=== PATIENT | female | born 1945 | race Caucasian/White ===

== ENCOUNTER 2018-01-28 10:21 | Emergency (ER) | payer MEDICARE, OTHER ==
[~2018-01-28] VITALS: Ht 170.2 cm; Wt 112.0 kg
[~2018-01-28 10:21] MED LIST: ALLO100 PO; AMLO5 PO; AMOX500 PO; ARANESP; ASPERCREME1 EACH TOP; ASPI325 PO; ASPI325EC PO; ASPI81CH PO; ASPI81EC PO; ATOR20 PO; Arthritis Pai42.5 GM TOP; BIOTIN2500 MCG PO; BUME1 PO; BUME2 PO; Bystolic10 MG PO; CALCAVITD PO; CALCAVITDA PO; CALCIT950 PO; CHOL10002 PO; CITA20 PO; CLON.5 PO; CLON1 PO; CLOP75 PO; CYAN1000 PO; DARB200I SUBQ; EPOE20I SUBQ; ERGO400 PO; ESTR2 PO; ESTRTP PV; Enablex15 MG PO; FERR325 PO; FISH1000 PO; FLUSAL2505 IH; FLUT.05NI; FLUT110OIA IH; FLUT44OIA; FLUT44OIA IH; FURO20 PO; FURO40 PO; GABA100 PO; GABA600 PO; GELNIQUE; GELNIQUE30 GM TD; GLIM4 PO; HYDACE5 PO; HYDMOR4 PO; HYDR-86; INSDET100 SC; INSDET100 SQ; INSDET100 SUBQ; INSUASPI SC; INSUASPI SUBQ; IRON150C; IRON150C PO; ISOMON30 PO; ISOMON60ER PO; Isosorbide Mono60 MG PO; LAVAP17G PO; LEVEMIR; LEVSOD100 PO; LEVSOD137 PO; LIDO700A20 TOP; LOSA25 PO; LOSA50 PO; MECL12.5 PO; METO10 PO; METPRE4DP PO; Macrobid 100 M100 MG PO; NEBI10 PO; NITR.4SL SL; NITR.6SL SL; Norco 5-325 Ta1 EACH PO; Novolog Fl100 UNIT/1 INJ; OMEP20ER PO; OMEP40CA12 PO; OXYC1TAB11 PO; Oxycodone-Apap1 EAC3 PO; PANT40 PO; PIOG30 PO; POTA10T PO; Percocet 5-3251 EACH PO; RAMI5 PO; RANO500T PO; RISE30 PO; RXERYTOPTH OP; SENN187 PO; SIMV40 PO; TOLT4 PO; TOUJEO SOL300 UNIT/1 SQ; TRAZ50 PO; Valium5 MG PO; Ventolin Soln3 ML INH; Zofran8 MG PO
[2018-01-28] MEDS ORDERED: Oxycodone HCl5 M1 PO (11:49)
== END 2018-01-28 12:09 | disposition home or self-care (01) ==
LOC: ER 10:21
DX: S82.61XA Displaced fracture of lateral malleolus of right fibula, initial encounter for closed fracture (principal); I12.9 Hypertensive chronic kidney disease with stage 1 through stage 4 chronic kidney disease, or unspecified chronic kidney disease; E11.22 Type 2 diabetes mellitus with diabetic chronic kidney disease; N18.4 Chronic kidney disease, stage 4 (severe); D63.1 Anemia in chronic kidney disease; J44.9 Chronic obstructive pulmonary disease, unspecified; Z88.1 Allergy status to other antibiotic agents; Z88.2 Allergy status to sulfonamides; Z88.8 Allergy status to other drugs, medicaments and biological substances; Z88.6 Allergy status to analgesic agent; Z79.899 Other long term (current) drug therapy; Z79.01 Long term (current) use of anticoagulants; Z79.4 Long term (current) use of insulin; W19.XXXA Unspecified fall, initial encounter
CPT/HCPCS: 29505; 73610; 99283-25

== ENCOUNTER 2018-01-30 14:27 | Observation (INO) | payer MEDICARE, OTHER ==
[~2018-01-30] VITALS: Ht 170.2 cm; Wt 112.0 kg
[~2018-01-30 14:27] MED LIST changes: +Oxycodone HCl5 M1 PO
[2018-01-31 04:38] LABS: Hematocrit 31.2 % (33.0-51.0); Hemoglobin 10.3 g/dL (11.5-16.0); Mean Corpuscular HGB 31.2 pg (26.0-34.0); Mean Corpuscular Volume 95 fL (80-100); Mean Platelet Volume 9.4 fL (9.1-12.4); Platelet Count 180 K/mm3 (150-400); RDW Coefficient Variation 14.6 % (11.7-14.2); RDW Standard Deviation 49.8 fL (35.1-46.3); White Blood Cell Count 5.15 K/mm3 (4.00-11.30)
[2018-01-31 04:56] LABS: Bun/Creatinine Ratio 9.4 (12.0-20.0); Calcium, Blood 8.2 mg/dL (8.5-10.1); Creatinine, Blood 1.06 mg/dL (0.40-1.00); Potassium, Blood 3.4 mmol/L (3.5-5.5)
[2018-02-03 04:21] LABS: BASOPHILS ABSOLUTE AUTO 0.04 K/mm3 (0.00-0.23); BASOPHILS PERCENT AUTO 1 % (0-2); EOSINOPHILS ABSOLUTE AUTO 0.19 K/mm3 (0.00-0.68); EOSINOPHILS PERCENT AUTO 3 % (0-6); Hematocrit 29.3 % (33.0-51.0); Hemoglobin 9.7 g/dL (11.5-16.0); IMMATURE GRAN ABSOLUTE AUTO 0.03 K/mm3 (0.00-0.10); IMMATURE GRAN PERCENT AUTO 1 % (0-1); LYMPHOCYTES ABSOLUTE AUTO 1.78 K/mm3 (0.84-5.20); LYMPHOCYTES PERCENT AUTO 28 % (21-46); MONOCYTES ABSOLUTE AUTO 0.45 K/mm3 (0.16-1.47); MONOCYTES PERCENT AUTO 7 % (4-13); Mean Corpuscular HGB 31.5 pg (26.0-34.0); Mean Corpuscular HGB Conc 33.1 g/dL (31.5-36.5); Mean Corpuscular Volume 95 fL (80-100); Mean Platelet Volume 9.4 fL (9.1-12.4); NEUTROPHILS ABSOLUTE AUTO 3.97 K/mm3 (1.96-9.15); NEUTROPHILS PERCENT AUTO 61 % (41-73); Platelet Count 199 K/mm3 (150-400); RDW Coefficient Variation 15.2 % (11.7-14.2); RDW Standard Deviation 52.6 fL (35.1-46.3); Red Blood Cell Count 3.08 M/mm3 (3.80-5.20); White Blood Cell Count 6.46 K/mm3 (4.00-11.30)
[2018-02-03 04:45] LABS: Magnesium, Blood 1.5 mg/dL (1.6-2.4)
[2018-02-03 04:47] LABS: Albumin, Blood 2.6 g/dL (3.4-5.0); Albumin/Globulin Ratio 0.9 (0.8-1.8); Bilirubin, Total 0.5 mg/dL (0.1-1.0); Bun/Creatinine Ratio 17.1 (12.0-20.0); Calcium, Blood 8.1 mg/dL (8.5-10.1); Creatinine, Blood 1.64 mg/dL (0.40-1.00); Total Protein, Blood 5.6 g/dL (6.4-8.2)
[2018-02-03 04:55] LABS: Percent Saturation 34.5 % (15.0-50.0)
[2018-02-03] MEDS ORDERED: CLON1 PO (13:45)
[2018-02-03] MEDS ORDERED: Percocet 5-3251 EACH PO (13:50)
== END 2018-02-03 16:30 | disposition home or self-care (01) ==
LOC: ER 14:27 → SURS 14:28
PROVIDERS: Internal Medicine; Nurse Practitioner Acute Care
DX: S82.61XA Displaced fracture of lateral malleolus of right fibula, initial encounter for closed fracture (principal); J44.9 Chronic obstructive pulmonary disease, unspecified; I25.10 Atherosclerotic heart disease of native coronary artery without angina pectoris; E11.22 Type 2 diabetes mellitus with diabetic chronic kidney disease; I12.9 Hypertensive chronic kidney disease with stage 1 through stage 4 chronic kidney disease, or unspecified chronic kidney disease; N18.9 Chronic kidney disease, unspecified; E87.6 Hypokalemia; E11.42 Type 2 diabetes mellitus with diabetic polyneuropathy; E11.51 Type 2 diabetes mellitus with diabetic peripheral angiopathy without gangrene; G47.33 Obstructive sleep apnea (adult) (pediatric); Z88.1 Allergy status to other antibiotic agents; Z88.2 Allergy status to sulfonamides; Z88.8 Allergy status to other drugs, medicaments and biological substances; Z79.899 Other long term (current) drug therapy; Z95.828 Presence of other vascular implants and grafts; W18.30XA Fall on same level, unspecified, initial encounter
CPT/HCPCS: 36415; 73562-RT; 73610; 80048; 80053; 82728; 82947; 83540; 83550; 83735; 85025; 85027; 94640; 94760; 94762; 97110; 97161; 97165; 97530; 97535; 99284-25; G8978; G8979; G8987; G8988; J1644; J3010

== ENCOUNTER → 2018-12-01 | Outpatient (CLI) | payer MEDICARE, OTHER | END | disposition home or self-care (01) | LOC: PLD 10:06 → LAB SHORT 10:06 | DX: C44.41 Basal cell carcinoma of skin of scalp and neck (principal) | CPT/HCPCS: 88305 ==

== ENCOUNTER 2019-05-28 08:05 | Emergency (ER) | payer MEDICARE, OTHER ==
[~2019-05-28] VITALS: Ht 167.6 cm; Wt 114.8 kg
== END 2019-05-28 10:11 | disposition home or self-care (01) ==
LOC: ER 08:05
DX: S93.401A Sprain of unspecified ligament of right ankle, initial encounter (principal); S80.02XA Contusion of left knee, initial encounter; S80.01XA Contusion of right knee, initial encounter; I12.9 Hypertensive chronic kidney disease with stage 1 through stage 4 chronic kidney disease, or unspecified chronic kidney disease; E11.22 Type 2 diabetes mellitus with diabetic chronic kidney disease; N18.4 Chronic kidney disease, stage 4 (severe); D63.1 Anemia in chronic kidney disease; J44.9 Chronic obstructive pulmonary disease, unspecified; G47.30 Sleep apnea, unspecified; Z88.1 Allergy status to other antibiotic agents; Z88.2 Allergy status to sulfonamides; Z88.8 Allergy status to other drugs, medicaments and biological substances; Z88.6 Allergy status to analgesic agent; Z79.899 Other long term (current) drug therapy; Z79.02 Long term (current) use of antithrombotics/antiplatelets; Z79.82 Long term (current) use of aspirin; Z79.51 Long term (current) use of inhaled steroids; Z79.4 Long term (current) use of insulin; X50.1XXA Overexertion from prolonged static or awkward postures, initial encounter
CPT/HCPCS: 73560-LT; 73560-RT; 73610; 99283-25

== ENCOUNTER 2019-08-06 12:38 | Inpatient (IN) | payer MEDICARE, OTHER ==
[~2019-08-06] VITALS: Ht 167.6 cm; Wt 115.5 kg
[~2019-08-06 12:38] MED LIST changes: -ATOR20 PO; +ATOR80 PO; +FISH OIL CONC1000 M2 PO; +FLUT1DIS5 INH; -LAVAP17G PO; +MIRALAX17 GM PO; -TOUJEO SOL300 UNIT/1 SQ; +TOUJEO SOL300 UNIT/2 SC; +VITAMIN D31000 UNI1 PO
[2019-08-06 13:25] LABS: BASOPHILS ABSOLUTE AUTO 0.03 K/mm3 (0.00-0.23); BASOPHILS PERCENT AUTO 0 % (0-2); EOSINOPHILS ABSOLUTE AUTO 0.01 K/mm3 (0.00-0.68); EOSINOPHILS PERCENT AUTO 0 % (0-6); Hematocrit 43.5 % (33.0-51.0); Hemoglobin 14.9 g/dL (11.5-16.0); IMMATURE GRAN ABSOLUTE AUTO 0.04 K/mm3 (0.00-0.10); IMMATURE GRAN PERCENT AUTO 0 % (0-1); LYMPHOCYTES ABSOLUTE AUTO 1.92 K/mm3 (0.84-5.20); LYMPHOCYTES PERCENT AUTO 19 % (21-46); MONOCYTES ABSOLUTE AUTO 0.58 K/mm3 (0.16-1.47); MONOCYTES PERCENT AUTO 6 % (4-13); Mean Corpuscular HGB 31.6 pg (26.0-34.0); Mean Corpuscular HGB Conc 34.3 g/dL (31.5-36.5); Mean Corpuscular Volume 92 fL (80-100); Mean Platelet Volume 9.2 fL (9.1-12.4); NEUTROPHILS ABSOLUTE AUTO 7.76 K/mm3 (1.96-9.15); NEUTROPHILS PERCENT AUTO 75 % (41-73); Platelet Count 367 K/mm3 (150-400); RDW Coefficient Variation 13.3 % (11.7-14.2); Red Blood Cell Count 4.71 M/mm3 (3.80-5.20); White Blood Cell Count 10.34 K/mm3 (4.00-11.30)
[2019-08-06 13:34] LABS: Source, Urine Clean Catch
[2019-08-06 13:41] LABS: Bilirubin, Urine Neg (Neg); Blood, Urine 2+ (Neg); Glucose Qualitative, Urine 4+ (Neg); Ketones, Urine Neg (Neg); Leukocyte Esterase, Urine 3+ (Neg); Nitrite, Urine Pos (Neg); Protein, Urine 2+ (Neg); Urobilinogen, Urine NORM (Normal); pH, Urine 6.5 (5.0-8.0)
[2019-08-06 13:47] LABS: Appearance, Urine Hazy (Clear); Color, Urine Pale Yellow (P-Yellow)
[2019-08-06 13:48] LABS: White Blood Cells, Urine 25-50 /hpf (0-5)
[2019-08-06 13:49] LABS: Bacteria Many /hpf; Red Blood Cells, Urine 0-2 /hpf (0-2); Squamous Epithelial Cells Few /hpf (Few)
[2019-08-06 13:50] LABS: Troponin I <0.015 ng/mL (0.000-0.040)
[2019-08-06 13:55] LABS: Alanine Aminotransfer (ALT/SGP 29 U/L (12-78); Albumin, Blood 3.9 g/dL (3.4-5.0); Albumin/Globulin Ratio 0.9 (0.8-1.8); Alk Phos 187 U/L (50-136); Anion Gap 15 mmol/L (6-16); Aspartate Aminotrans (AST/SGOT 20 U/L (12-37); Bilirubin, Total 0.8 mg/dL (0.1-1.0); Blood Urea Nitrogen 83 mg/dL (8-24); Bun/Creatinine Ratio 37.1 (12.0-20.0); CO2, Blood 36 mmol/L (21-32); Calcium, Blood 9.7 mg/dL (8.5-10.1); Chloride, Blood 76 mmol/L (98-108); Creatinine, Blood 2.24 mg/dL (0.40-1.00); Globulin, Blood 4.2 g/dL (2.2-4.0); Glomerular Filtration Rate 23 (60-); Sodium, Blood 127 mmol/L (136-145); Total Protein, Blood 8.1 g/dL (6.4-8.2)
[2019-08-06 13:56] LABS: Glucose, Blood 625 mg/dL (70-99)
[2019-08-06] MEDS ORDERED: METO5 PO (14:18)
[2019-08-06] MEDS ORDERED: BUME1 PO (14:18)
[2019-08-06] MEDS ORDERED: DARIFENACIN ER15 MG PO (14:20)
[2019-08-06] MEDS ORDERED: MYRBETRIQ50 MG PO (14:21)
[2019-08-06] MEDS ORDERED: CLON1 PO (14:22)
[2019-08-06] MEDS ORDERED: PANT40 PO (14:22)
[2019-08-06] MEDS ORDERED: DULO60 PO (14:24)
[2019-08-06] MEDS ORDERED: NOVOLOG FL100 UNIT/3 SC (14:27)
[2019-08-06] MEDS ORDERED: FERSU300 PO (14:28)
[2019-08-06] MEDS ORDERED: SENN187 PO (14:29)
[2019-08-06] MEDS ORDERED: MERIBIN5 M1 PO (14:29)
[2019-08-06 15:21] LABS: pH Blood Venous 7.56 (7.34-7.37)
[2019-08-06 15:24] LABS: Base Excess Venous 19.1 mmol/L; Bicarbonate Venous 40.4 mmol/L (24.0-30.0); PCO2 Venous 46.7 mmHg (38-42); PO2 Venous 44.8 mmHg (38-42)
[2019-08-06 16:25] LABS: Glucose, Blood 591 mg/dL (70-99)
--- NOTE | 2019-08-06 16:42 | NUR ---
LAB CALLED REQUESTING THE SPECIMENS BE COLLECTED THE ER IS UNABLE TO. COLLECTED COVID AND RESP PCR PER THEIR REQUEST, THIS RN DID NOT OBTAIN SPECIMEN.
--- NOTE | 2019-08-06 18:20 | NUR ---
ADMISSION PT ADMITTED TO THE FLOOR FROM THE ER. PT IS AWAKE, A&O X4, SHE IS ACCOMPANIED BY HER . VSS, RESP UNLABORED, SHE DNIES SOBB/CP AT THIS TIME & STATES SHE IS STARTING TO "FEEL BETTER". PT IS ON ROOM AIR AT THIS TIME, RAPID COVID RESULTS ARE NEG. NS INFUSING @ 100 ML/HR. REPORT GIVEN TO RADAMES RN. CALL LIGHT IN REACH.
[2019-08-06 18:38] LABS: Glucose, Blood 475 mg/dL (70-99)
[2019-08-06 21:27] LABS: Bun/Creatinine Ratio 40.6 (12.0-20.0); Calcium, Blood 9.2 mg/dL (8.5-10.1); Creatinine, Blood 2.07 mg/dL (0.40-1.00); Potassium, Blood 2.7 mmol/L (3.5-5.5)
--- NOTE | 2019-08-06 22:02 | NUR ---
UPDATE NURSE PRACTIONER ALEX NOTIFIED OF 2100 POTASSIUM AND GLUCOSE RESULTS. ORDERS RECIEVED FOR POTASSIUM REPLACEMENT. ORDER OBTAINED FOR TYLENOL FOR HEADACHE WELL. GLENDY JOHNSON STATED TO GO AHEAD AND COVER PATIENT WITH ORDERED SHORT ACTING INSULIN PER THE ORDERED SLIDING SCALE IN EMAR. GLENDY JOHNSON AWARE THAT NEXT RECHECK OF BOTH BLOOD SUGAR AND POTASSIUM IS WITH AM LABS AND IS FINE WITH THAT. WILL CONTINUE TO MONITOR.
[2019-08-07 00:04] LABS: Adenovirus Not Detected (NOT DETECT); Bordetella pertussis Not Detected (NOT DETECT); Chlamydophila pneumoniae Not Detected (NOT DETECT); Coronavirus 229E Not Detected (NOT DETECT); Coronavirus HKU1 Not Detected (NOT DETECT); Coronavirus NL63 Not Detected (NOT DETECT); Coronavirus OC43 Not Detected (NOT DETECT); Human Metapneumovirus Not Detected (NOT DETECT); Human Rhinovirus/Enterovirus Not Detected (NOT DETECT); Influenza A/2009-H1 Not Detected (NOT DETECT); Influenza A/H1 Not Detected (NOT DETECT); Influenza A/H3 Not Detected (NOT DETECT); Influenza B Not Detected (NOT DETECT); Mycoplasma pneumoniae Not Detected (NOT DETECT); Parainfluenza Virus 1 Not Detected (NOT DETECT); Parainfluenza Virus 2 Not Detected (NOT DETECT); Parainfluenza Virus 3 Not Detected (NOT DETECT); Parainfluenza Virus 4 Not Detected (NOT DETECT); Respiratory Syncytial Virus Not Detected (NOT DETECT)
[2019-08-07] MEDS ORDERED: ALBU90OI INH (02:37)
[2019-08-07] MEDS ORDERED: MECL12.5 PO (02:38)
[2019-08-07] MEDS ORDERED: Enablex7.5 MG PO (02:43)
[2019-08-07 05:18] LABS: BASOPHILS ABSOLUTE AUTO 0.02 K/mm3 (0.00-0.23); BASOPHILS PERCENT AUTO 0 % (0-2); EOSINOPHILS ABSOLUTE AUTO 0.12 K/mm3 (0.00-0.68); EOSINOPHILS PERCENT AUTO 1 % (0-6); Hemoglobin 13.4 g/dL (11.5-16.0); IMMATURE GRAN ABSOLUTE AUTO 0.03 K/mm3 (0.00-0.10); IMMATURE GRAN PERCENT AUTO 0 % (0-1); LYMPHOCYTES PERCENT AUTO 25 % (21-46); MONOCYTES ABSOLUTE AUTO 0.63 K/mm3 (0.16-1.47); MONOCYTES PERCENT AUTO 7 % (4-13); Mean Corpuscular HGB 31.5 pg (26.0-34.0); Mean Corpuscular HGB Conc 33.5 g/dL (31.5-36.5); Mean Corpuscular Volume 94 fL (80-100); Mean Platelet Volume 9.2 fL (9.1-12.4); NEUTROPHILS PERCENT AUTO 66 % (41-73); Platelet Count 314 K/mm3 (150-400); RDW Coefficient Variation 13.6 % (11.7-14.2); RDW Standard Deviation 47.1 fL (35.1-46.3); Red Blood Cell Count 4.26 M/mm3 (3.80-5.20)
[2019-08-07 05:39] LABS: Albumin, Blood 3.1 g/dL (3.4-5.0); Albumin/Globulin Ratio 0.9 (0.8-1.8); Bilirubin, Total 0.7 mg/dL (0.1-1.0); Bun/Creatinine Ratio 37.6 (12.0-20.0); Calcium, Blood 8.9 mg/dL (8.5-10.1); Creatinine, Blood 2.02 mg/dL (0.40-1.00); Globulin, Blood 3.6 g/dL (2.2-4.0); Potassium, Blood 3.1 mmol/L (3.5-5.5); Total Protein, Blood 6.7 g/dL (6.4-8.2)
--- NOTE | 2019-08-07 06:32 | NUR ---
SHIFT SUMMARY PATIENT PLEASENT AND COOPERATIVE THROUGHOUT THE NIGHT. PATIENT APPEARED TO SLEEP WELL LAST NIGHT AFTER APPROX 2300. PATIENT WEARING HOME CPAP, CONTINUOUS BIOX IN PLACE. PATIENT DENIED THE NEED FOR ANY TYLENOL STATING THAT HER HEADACHE WAS GETTING BETTER ON IT'S OWN. IV FLUIDS AND POTASSIUM RUNNING PER ORDERS LAST NIGHT. AT APPROX 2130 PATIENT STARTED FEELING VERY SHORT OF BREATH, O2 SATS REAMINED GREATER THAN 92% AND LUNGS WERE CLEAR. AFTER RECIEVING SOME KCL PATIENT REPORTED FEELING BETTER. SHE STATED, "THIS HAPPEND EARLIER TOO, I WAS FEELING SHORT OF BREATH BUT IT GOT BETTER AFTER GETTING SOME POTASSIUM WHILE I WAS IN THE ER." VITAL SIGNS CHARTED. NO FURTHER EPISODES OF SOB OCCURED LAST NIGHT. WILL CONTINUE TO MONITOR PATIENT AND REPORT TO ONCOMING RN.
--- NOTE | 2019-08-07 12:06 | NUR ---
ECHOCARDIOGRAM COMPLETE
--- NOTE | 2019-08-07 17:51 | NUR ---
SHIFT SUMMARY VSS, RESP UNLABORED, PT HAS BEEN UP WITH PHYSICAL THERAPY & AROUND IN HER ROOM WITH NO DIZZINESS, SHE WAS ALSO ABLE TO SHOWER TODAY. TOLERATING PO INTAKE, VOIDING WNL, NS INFUSING PER EMAR @100 ML/HR, GLUCOSE LEVELS CONTINUE TO RISE. INSULIN ADMINISTERED PER EMAR. NO OTHER ACUTE CHANGES NOTED. IS AT THE BEDSIDE AT THIS TIME, CALL LIGHT IN REACH.
[2019-08-08 04:02] LABS: BASOPHILS ABSOLUTE AUTO 0.06 K/mm3 (0.00-0.23); BASOPHILS PERCENT AUTO 1 % (0-2); EOSINOPHILS ABSOLUTE AUTO 0.26 K/mm3 (0.00-0.68); EOSINOPHILS PERCENT AUTO 4 % (0-6); Hematocrit 35.6 % (33.0-51.0); IMMATURE GRAN ABSOLUTE AUTO 0.03 K/mm3 (0.00-0.10); IMMATURE GRAN PERCENT AUTO 0 % (0-1); LYMPHOCYTES ABSOLUTE AUTO 1.95 K/mm3 (0.84-5.20); LYMPHOCYTES PERCENT AUTO 28 % (21-46); MONOCYTES ABSOLUTE AUTO 0.49 K/mm3 (0.16-1.47); MONOCYTES PERCENT AUTO 7 % (4-13); Mean Corpuscular HGB 32.1 pg (26.0-34.0); Mean Corpuscular HGB Conc 33.7 g/dL (31.5-36.5); Mean Corpuscular Volume 95 fL (80-100); NEUTROPHILS ABSOLUTE AUTO 4.21 K/mm3 (1.96-9.15); NEUTROPHILS PERCENT AUTO 60 % (41-73); Platelet Count 245 K/mm3 (150-400); RDW Coefficient Variation 13.6 % (11.7-14.2); RDW Standard Deviation 48.1 fL (35.1-46.3); Red Blood Cell Count 3.74 M/mm3 (3.80-5.20)
[2019-08-08 04:24] LABS: Albumin, Blood 2.8 g/dL (3.4-5.0); Albumin/Globulin Ratio 0.9 (0.8-1.8); Bilirubin, Total 0.7 mg/dL (0.1-1.0); Bun/Creatinine Ratio 34.1 (12.0-20.0); Calcium, Blood 8.9 mg/dL (8.5-10.1); Creatinine, Blood 1.7 mg/dL (0.40-1.00); Globulin, Blood 3.2 g/dL (2.2-4.0); Magnesium, Blood 2.3 mg/dL (1.6-2.4); Potassium, Blood 2.9 mmol/L (3.5-5.5)
[2019-08-08 04:32] LABS: Percent Saturation 46.2 % (15.0-50.0)
--- NOTE | 2019-08-08 06:05 | NUR ---
SHIFT SUMMARY. RA WNL SAT. WEARAS CPAP ALL NOC. NO BLEED IN O2 PER HOME USE. CALLS STAFF TO [facility] HELP/ WEAK . DENIES PAIN. NO SOB AND LUNGS CLEAR. VERY EXCORIATED AREA RT PANIS AND GROIN AREA AND CLEANSED AND NYSTATIN APPLIED. NO ACUTE ISSUES . SLEPT ALL NOC UNLESS VOIDED ON [facility]. PLACED CALL TO DR COUGHLIN ABOUT LOW K AND ORDERS GIVEN
--- NOTE | 2019-08-08 12:13 | NUR ---
PATIENT REFUSED SHOWER PATIENT HAD A SHOWER YESTERDAY. STATES SHE IS GOING HOME TOMORROW AND WILL TAKE ONE WHEN SHE GOES HOME.
--- NOTE | 2019-08-08 16:01 | NUR ---
TRANSFER OF CARE REPORT GIVEN TO [facility] RN. PT TRANSFERRED TO MEDICAL FLOOR ROOM 310 VIA WHEELCHAIR, ESCORTED BY PCT AND FAMILY. BELONGINGS GATHERED AND TRANSPORTED WITH PT.
--- NOTE | 2019-08-08 17:01 | NUR ---
SHIFT SUMMARY PT ARRIVED TO THE FLOOR MID-AFTERNOON. PT TRANSFERED FROM WHEELCHAIR TO BED INDEPENDENTLY. PT'S IS IN THE ROOM WITH PT. PT IS ALERT AND ORIENTED. PT DENIES PAIN AT THIS TIME. PT SITTING UP IN BED TALKING WITH .
[2019-08-09] MEDS ORDERED: ALBU2.5V5 INH (03:43)
[2019-08-09] MEDS ORDERED: METPRE4DP PO (03:46)
[2019-08-09 04:36] LABS: BASOPHILS ABSOLUTE AUTO 0.03 K/mm3 (0.00-0.23); BASOPHILS PERCENT AUTO 1 % (0-2); EOSINOPHILS ABSOLUTE AUTO 0.25 K/mm3 (0.00-0.68); EOSINOPHILS PERCENT AUTO 5 % (0-6); Hematocrit 33.2 % (33.0-51.0); Hemoglobin 10.9 g/dL (11.5-16.0); IMMATURE GRAN ABSOLUTE AUTO 0.03 K/mm3 (0.00-0.10); IMMATURE GRAN PERCENT AUTO 1 % (0-1); LYMPHOCYTES ABSOLUTE AUTO 1.85 K/mm3 (0.84-5.20); LYMPHOCYTES PERCENT AUTO 34 % (21-46); MONOCYTES ABSOLUTE AUTO 0.33 K/mm3 (0.16-1.47); MONOCYTES PERCENT AUTO 6 % (4-13); Mean Corpuscular HGB 31.4 pg (26.0-34.0); Mean Corpuscular HGB Conc 32.8 g/dL (31.5-36.5); Mean Corpuscular Volume 96 fL (80-100); NEUTROPHILS ABSOLUTE AUTO 2.94 K/mm3 (1.96-9.15); NEUTROPHILS PERCENT AUTO 54 % (41-73); Platelet Count 199 K/mm3 (150-400); RDW Coefficient Variation 13.7 % (11.7-14.2); RDW Standard Deviation 48.5 fL (35.1-46.3); Red Blood Cell Count 3.47 M/mm3 (3.80-5.20); White Blood Cell Count 5.43 K/mm3 (4.00-11.30)
[2019-08-09 04:58] LABS: Albumin, Blood 2.6 g/dL (3.4-5.0); Albumin/Globulin Ratio 0.9 (0.8-1.8); Bilirubin, Total 0.9 mg/dL (0.1-1.0); Bun/Creatinine Ratio 25.9 (12.0-20.0); Calcium, Blood 8.3 mg/dL (8.5-10.1); Creatinine, Blood 1.47 mg/dL (0.40-1.00); Globulin, Blood 2.9 g/dL (2.2-4.0); Potassium, Blood 3.3 mmol/L (3.5-5.5); Total Protein, Blood 5.5 g/dL (6.4-8.2)
--- NOTE | 2019-08-09 05:15 | NUR ---
SUMMARY: A/OX4, CALLS APPROPRIATELY AND SPECIFIES NEEDS. SHE'S UP W/SBA AND FWW TO TOILET AND VOIDING BOB URINE. SHE'S DENIED ANY CONTINUED DIZZYNESS UPON AMBULATION BUT FELL PRIOR TO ADMIT. BRUISES TO BUE'S OBSERVED RESULT AND LOTION APPLIED TO R.ARM FOR C/O ITCHING FROM PREVIOUS ADHESIVE. NS INFUSES AT 100 ML/HR. PT DENIES PAIN/COMPLAINTS AND RECIEVED PRN KLONAZEPAM AT HS PER PT REQUEST. NO ACUTE CHANGES, VSS/AFEBRILE. POSSIBLE D/C TODAY. WCTM AND REPORT TO DAY RN.
[2019-08-09] MEDS ORDERED: CARV6.25 PO (12:44)
[2019-08-09] MEDS ORDERED: CIPR500 PO (12:45)
--- NOTE | 2019-08-09 13:18 | NUR ---
DISCHARGE NOTE: PATIENT DISCHARGED TO HOME WITH HER , HAS ALL BELONGINGS. IV SALINE LOCK X 2 REMOVED WITHOUT INCIDENT. INSTRUCTED TO MAKE F/U APPT WITH DR. TAHPA'S OFFICE AND TO [facility] AT [facility]; VERBALIZED UNDERSTANDING.
== END 2019-08-09 13:25 | disposition home or self-care (01) | DRG 683 ==
LOC: ER 12:38 → PCU 15:53 → MEDS 08-08 15:53 → ENPENDDIS 08-09 12:09 → MEDS 08-09 13:25
PROVIDERS: Emergency Medicine; Internal Medicine; Nurse Practitioner Acute Care; Physician Assistant; ADMIT Hospitalist
DX: N17.9 Acute kidney failure, unspecified (principal); N39.0 Urinary tract infection, site not specified; Z68.41 Body mass index [BMI] 40.0-44.9, adult; E87.1 Hypo-osmolality and hyponatremia; E87.3 Alkalosis; I25.10 Atherosclerotic heart disease of native coronary artery without angina pectoris; J44.9 Chronic obstructive pulmonary disease, unspecified; I12.9 Hypertensive chronic kidney disease with stage 1 through stage 4 chronic kidney disease, or unspecified chronic kidney disease; N18.4 Chronic kidney disease, stage 4 (severe); E11.22 Type 2 diabetes mellitus with diabetic chronic kidney disease; E87.6 Hypokalemia; G47.33 Obstructive sleep apnea (adult) (pediatric); E86.0 Dehydration; B96.20 Unspecified Escherichia coli [E. coli] as the cause of diseases classified elsewhere; G25.81 Restless legs syndrome; E03.9 Hypothyroidism, unspecified; E11.65 Type 2 diabetes mellitus with hyperglycemia; E11.42 Type 2 diabetes mellitus with diabetic polyneuropathy; E11.51 Type 2 diabetes mellitus with diabetic peripheral angiopathy without gangrene; E66.01 Morbid (severe) obesity due to excess calories; F41.0 Panic disorder [episodic paroxysmal anxiety]; Z88.6 Allergy status to analgesic agent; Z88.1 Allergy status to other antibiotic agents; Z88.2 Allergy status to sulfonamides; Z88.8 Allergy status to other drugs, medicaments and biological substances; Z79.84 Long term (current) use of oral hypoglycemic drugs; Z79.02 Long term (current) use of antithrombotics/antiplatelets; Z79.82 Long term (current) use of aspirin; Z79.4 Long term (current) use of insulin; Z79.899 Other long term (current) drug therapy; Z95.5 Presence of coronary angioplasty implant and graft
CPT/HCPCS: 0099U; 36415; 71045; 80048; 80053; 81001; 82728; 82803; 82947; 83540; 83550; 83735; 83880; 83930; 84100; 84484; 85025; 87077; 87086; 87186; 93005; 93010; 93306; 94640; 94760; 94762; 96361; 96365; 96375; 97116; 97162; 99285-25; A9270; A9270-GY; J0744; J1644; J3480; J7030; U0002